=== PATIENT | female | born 1990 | race American Indian/Alaskan Native ===

== ENCOUNTER 2021-10-04 14:25 | Emergency (ER) | payer SELFPAY ==
[2021-10-04 14:30] VITALS: BP 132/83
--- NOTE | 2021-10-04 15:53 | XRay Report ---
CHEST 2 VIEWS INDICATION / CLINICAL INFORMATION: sob. COMPARISON: None available. FINDINGS: SUPPORT DEVICES: None. HEART / MEDIASTINUM: No significant abnormality. LUNGS / PLEURA: No significant pulmonary or pleural abnormality. No pneumothorax. ADDITIONAL FINDINGS: No significant additional findings. IMPRESSION: 1. No acute findings. Signer Name: Jasper Rashid MD Signed: 10/04/2021 3:48 PM Workstation Name: [id number]
[2021-10-04] MEDS ORDERED: ALBUTEROL 2.5 MG/3 ML NEBU IH ONE (16:08)
[2021-10-04] MEDS ORDERED: IPRATROPIUM 0.02% NEBU 2.5 ML IH ONE (16:08)
[2021-10-04] MEDS ORDERED: methylPREDNISolone Sod Succinate 125 MG/2 ML INJ IM ONE (16:09)
--- NOTE | 2021-10-04 16:09 | Emergency Department Report ---
Minor Respiratory - HPI Chief Complaint: Adult Asthma Stated Complaint: ASTHMA EXACERBATION Time Seen by Provider: 10/04/21 16:02 Duration: 2 Days Pain Location: Chest Severity: mild Minor Respiratory: Yes Able to Tolerate Fluids, No Rhinorrhea, No Sore Throat, No Ear Pain, No Cough, No Sick Contacts, No Hemoptysis, No Chest Pain, No Shortness of Breath, No Fever Other History: She is a 31-year-old asthmatic. She called EMS due to wheezing and shortness of breath. She was out of her inhaler. They gave her DuoNeb. She states she does not feel any better. She has bilateral wheezing on exam. No fever or chills. No purulent sputum ED Review of Systems ROS: Stated complaint: ASTHMA EXACERBATION Other details as noted in HPI Comment: All other systems reviewed and negative ED Past Medical Hx - Past Medical History Previous Medical History?: Yes Hx Asthma: Yes - Family History Family history: no significant - Social History Smoking Status: Never Smoker Substance Use Type: None - Medications Home Medications: Home Medications Medication Instructions Recorded Confirmed Last Taken Type Albuterol Mdi (or & Nicu Only) 2 puff IH QID PRN #1 inhalation 10/04/21 Unknown Rx [ProAir HFA Inhaler] Cetirizine HCl [ZyrTEC] 10 mg PO DAILY #30 capsule 10/04/21 Unknown Rx Fluticasone [Flonase] 1 spray NS QDAY #1 bottle 10/04/21 Unknown Rx predniSONE [Deltasone] 20 mg PO DAILY #5 tablet 10/04/21 Unknown Rx Minor Respiratory Exam - Exam General: Vital signs noted. No distress. Alert and acting appropriately. HEENT: Yes Moist Mucous Membranes, No Pharyngeal Erythema, No Pharyngeal Exudates, No Rhinorrhea, No Conjuctival Injection, No Frontal Tenderness, No Maxillary Tenderness Ear: Neither TM Bulge, Neither TM Erythema, Neither EAC Pain, Neither EAC Discharge Neck: Yes Supple, No Adenopathy Lungs: Yes Good Air Exchange, Yes Wheezes, No Ronchi, No Stridor, No Cough, No Labored Respirations, No Retractions, No Use of Accessory Muscles, No Other Abnormal Lung Sounds Heart: Yes Regular, No Murmur Abdomen: Yes Normal Bowel Sounds, No Tenderness, No Peritoneal Signs Skin: No Rash, No Edema Neurologic: Alert and oriented, no deficits. Musculoskeletal: Unremarkable. ED Course Vital Signs 10/04/21 14:29 Temperature 98.9 F Pulse Rate 70 Respiratory 16 Rate Blood Pressure 132/83 [Right] O2 Sat by Pulse 100 Oximetry ED Medical Decision Making - Radiology Data Radiology results: report reviewed, image reviewed No acute process - Medical Decision Making Vital Signs 10/04/21 14:29 Temperature 98.9 F Pulse Rate 70 Respiratory 16 Rate Blood Pressure 132/83 [Right] O2 Sat by Pulse 100 Oximetry Patient given albuterol and Atrovent per respiratory. Also given Solu-Medrol IM. She has no fever or sputum: Not being administered antibiotics. It is ambulatory with a saturation of 100% on room air Patient being discharged home with discharge plan of care including diet, activity, medications and follow-up. She verbalizes understanding of plan of care. - Differential Diagnosis Asthma with or without infection Critical care attestation.: If time is entered above; I have spent that time in minutes in the direct care of this critically ill patient, excluding procedure time. ED Disposition Clinical Impression: Asthma with acute exacerbation Qualifiers: Asthma severity: mild Asthma persistence: intermittent Qualified Code(s): J45.21 - Mild intermittent asthma with (acute) exacerbation Disposition: 01 HOME / SELF CARE / HOMELESS Is pt being admited?: No Does the pt Need Aspirin: No Condition: Stable Instructions: Asthma, Adult Additional Instructions: Medications as ordered. Stay well-hydrated with water Follow-up with PCP referral given below Referrals: EM AMATO MD [Staff Physician] - 3-5 Days Time of Disposition: 16:09
== END 2021-10-04 18:00 | disposition home or self-care (01) ==
LOC: ED 14:25
DX: J45.901 Unspecified asthma with (acute) exacerbation (principal)
CPT/HCPCS: 71046; 94640; 96372; 99283; J2930; 94644